=== PATIENT | male | born 1980 | race Caucasian/White ===

== ENCOUNTER 2019-03-18 07:39 | Emergency (ER) | payer BC ==
--- NOTE | 2019-03-18 07:49 | EDM.PDOC ---
ED HPI GENERAL MEDICAL PROBLEM - General Chief Complaint: Respiratory Problem Stated Complaint: COUGHING UP BROWN PHLEGM Time Seen by Provider: 03/18/19 07:41 - History of Present Illness INITIAL COMMENTS - FREE TEXT/NARRATIVE: HISTORY AND PHYSICAL: History of present illness: Patient is a 39-year-old white male sensory concern of cough productive of brown phlegm worse over the last several days patient has used an inhaler in the past and does currently have one. There's been no fever chills nausea vomiting or other complaints. Review of systems: As per history of present illness and below otherwise all systems reviewed and negative. Past medical history: As per history of present illness and as reviewed below otherwise noncontributory. Surgical history: As per history of present illness and as reviewed below otherwise noncontributory. Social history: No reported history of drug or alcohol abuse. Family history: As per history of present illness and as reviewed below otherwise noncontributory. Physical exam: HEENT: Atraumatic, normocephalic, pupils reactive, negative for conjunctival pallor or scleral icterus, mucous membranes moist, throat clear, neck supple, nontender, trachea midline. Lungs: Clear to auscultation, breath sounds equal bilaterally, chest nontender. Heart: S1S2, regular, negative for clicks, rubs, or JVD. Abdomen: Soft, nondistended, nontender. Negative for masses or hepatosplenomegaly. Negative for costovertebral tenderness. Pelvis: Stable nontender. Genitourinary: Deferred. Rectal: Deferred. Extremities: Atraumatic, negative for cords or calf pain. Neurovascular unremarkable. Neuro: Awake, alert, oriented. Cranial nerves II through XII unremarkable. Cerebellum unremarkable. Motor and sensory unremarkable throughout. Exam nonfocal. Diagnostics: Chest x-ray influenza screen Therapeutics: None Impression: #1 tracheobronchitis Definitive disposition and diagnosis as appropriate pending reevaluation and review of above. - Related Data Allergies Allergy/AdvReac Type Severity Reaction Status Date / Time nicotine Allergy Hives Verified 03/18/19 07:48 ED ROS GENERAL - Review of Systems Review Of Systems: ROS reveals no pertinent complaints other than HPI. ED EXAM, GENERAL - Physical Exam Exam: See Below (See dictation) Course - Orders/Labs/Meds Orders: Active Orders 24 hr Category Date Time Status Chest 1V Frontal [CR] Stat Exams 03/18/19 07:42 Ordered Departure - Departure Time of Disposition: 07:48 Disposition: Home, Self-Care 01 Condition: Good Clinical Impression: Tracheobronchitis - Discharge Information Additional Instructions: The following information is given to patients seen in the emergency department who are being discharged to home. This information is to outline your options for follow-up care. We provide all patients seen in our emergency department with a follow-up referral. The need for follow-up, as well as the timing and circumstances, are variable depending upon the specifics of your emergency department visit. If you don't have a primary care physician on staff, we will provide you with a referral. We always advise you to contact your personal physician following an emergency department visit to inform them of the circumstance of the visit and for follow-up with them and/or the need for any referrals to a consulting specialist. The emergency department will also refer you to a specialist when appropriate. This referral assures that you have the opportunity for followup care with a specialist. All of these measure are taken in an effort to provide you with optimal care, which includes your followup. Under all circumstances we always encourage you to contact your private physician who remains a resource for coordinating your care. When calling for followup care, please make the office aware that this follow-up is from your recent emergency room visit. If for any reason you are refused follow-up, please contact the [facility] emergency department at and asked to speak to the emergency department charge nurse. Augmentin as prescribed continue albuterol inhaler as directed follow-up primary medical doctor as needed as discussed and return as needed as discussed - My Orders Last 24 Hours: My Active Orders 03/18/19 07:42 Chest 1V Frontal [CR] Stat - Assessment/Plan Last 24 Hours: My Active Orders 03/18/19 07:42 Chest 1V Frontal [CR] Stat
--- NOTE | 2019-03-18 08:39 | CR ---
INDICATION: Pain, shortness of breath, cough. FINDINGS: Heart mediastinum and pulmonary vessels are within normal limits. There is no sign of pneumothorax. The lungs are clear for technique. Impression : No acute findings. Dictated by Kg Don MD @ Mar 18 2019 8:37AM Signed by Dr. Kg Don @ Mar 18 2019 8:38AM
== END 2019-03-18 09:00 | disposition home or self-care (01) ==
LOC: MW.ED 07:39
DX: J40 Bronchitis, not specified as acute or chronic (principal); Z88.8 Allergy status to other drugs, medicaments and biological substances
CPT/HCPCS: 71045; 71045-26; 87804; 99283-25

== ENCOUNTER 2020-01-09 09:55 | Day surgery (SDC) | payer BC ==
[~2020-01-09 09:55] MED LIST: Lactated Ringers 1,000 ML IV SCH; Sodium Chloride 0.9% 10 ML SDV IV PRN; Sodium Chloride 0.9% 10 ML Syringe FLUSH PRN; Sodium Chloride 0.9% 2.5 ML Syringe FLUSH PRN
[2020-01-09] MEDS ORDERED: Bupivacaine 0.5% 30 ML SDV ONE (10:12)
[2020-01-09] MEDS ORDERED: Lidocaine 1% 20 ML MDV ONE (10:12)
[2020-01-09] MEDS ORDERED: ceFAZolin 2 GM in Premix Bag 1 BAG IV ONE (11:56)
[2020-01-09] MEDS ORDERED: ceFAZolin/Dextrose,Iso-Osmotic 2 GM/50 ML Duplex Bag IV ONE (12:00)
--- NOTE | 2020-01-09 12:01 | PCM.OPNOTE ---
- General Post-Op/Procedure Note Date of Surgery/Procedure: 01/09/20 Operative Procedure(s): Excision posterior scalp lesion Findings: 1 x 0.5 cm round scalp lesion Pre Op Diagnosis: Scalp lesion Post-Op Diagnosis: same Anesthesia Technique: Local Primary Surgeon: Balbina VARELA in mLs: 2 Condition: Good
--- NOTE | 2020-01-09 15:46 | OR ---
SURGEON: BALBINA ESTRELLA MD DATE OF PROCEDURE: 01/09/2020 PREOPERATIVE DIAGNOSIS: Posterior scalp lesion. POSTOPERATIVE DIAGNOSIS: Posterior scalp lesion. PROCEDURE PERFORMED: Excision of posterior scalp lesion. PRIMARY SURGEON: Balbina Estrella MD ANESTHESIA: Local. ESTIMATED BLOOD LOSS: 2 mL. FINDINGS: 1 x 0.5 cm round appearing scalp lesion in the subcutaneous tissues. There were no margins associated with this case. COMPLICATIONS: None. INDICATIONS: The patient is a 40-year-old male who has a posterior scalp lesion. He states that sometimes it becomes red and swollen as well as painful. It is currently asymptomatic, but he would like to have it removed. The patient and I discussed the need to perform this in the operating room due to the need for electrocautery. The patient and I discussed the procedure, expected perioperative course, and risks including bleeding or infection. He verbalized understanding and wishes to proceed. PROCEDURE IN DETAIL: The patient was brought into the OR and placed on the OR cart in a beach chair position. A time-out was completed verifying the patient's name, age, date of , allergies, and procedure to be performed. The posterior scalp lesion had been marked preoperatively. The area around it was prepped and draped in sterile fashion. I anesthetized the area overlying the scalp lesion with 1% lidocaine plain. A total of 3 mL was used. Once adequate anesthesia was achieved, a 15 blade was used to make a 3 cm incision overlying this mass. Electrocautery was used to dissect down into the subcutaneous fat layer. Upon entering this area, I identified a cystic appearing structure. This was grasped with a hemostat, and using a combination of sharp dissection with a tenotomy and electrocautery, I dissected it free from the overlying scalp as well as the surrounding subcutaneous tissues. It was placed on the back table and measured. It was oblong in size and measured 1 cm x 0.5 cm in size. No margins were associated with this case. The mass was then sent to pathology, labeled as scalp lesion. I inspected my operative field. Hemostasis was achieved with electrocautery. I then closed the subcutaneous layer with interrupted 3-0 Vicryl sutures. The skin was then closed with interrupted 3-0 Ethilon sutures. A sterile dressing was applied. The patient tolerated the procedure well and was transferred to the PACU in stable condition. JESÚS / EMILIA /[id number]
== END 2020-01-09 12:35 | disposition home or self-care (01) ==
LOC: MW.SDS 09:55
PROVIDERS: ATTEND Surgery
DX: R22.0 Localized swelling, mass and lump, head (principal)
CPT/HCPCS: 11421; 12032; J0690; J2001; J7120; J3490

== ENCOUNTER 2021-05-10 12:52 | Emergency (ER) | payer BC ==
--- NOTE | 2021-05-10 14:11 | CR ---
Indication: Elbow pain Technique: Four views right elbow Comparison: No comparison Findings: Soft tissue swelling. Normal alignment. Olecranon spur no acute fractures seen. Dictated by Chayo Shah MD @ 05/10/2021 2:10:38 PM (Electronically Signed)
--- NOTE | 2021-05-10 14:23 | EDM.PDOC ---
ED HPI GENERAL MEDICAL PROBLEM - General Chief Complaint: Upper Extremity Injury/Pain Stated Complaint: RT ELBOW PAIN Time Seen by Provider: 05/10/21 13:15 - History of Present Illness INITIAL COMMENTS - FREE TEXT/NARRATIVE: CHIEF COMPLAINT(S): Right elbow pain HISTORY OF PRESENT ILLNESS: This is a 41-year-old man without any significant past medical history who comes to the emergency department with a chief complaint of right elbow pain. The patient states that approximately 3 days ago he was working at work when he accidentally plus gripping his right elbow. He states that he initially was not feeling bad but there was a bruise that developed on the medial side of his right elbow that seems to be getting larger and is never had a bruise this large so he wanted to come and have it evaluated. He states that he is able to move his elbow without any significant pain and initially it was hurting but now he is experiencing no pain. States he is mainly concerned about the bruise. He denies any numbness, tingling, or weakness of his hand. He denies any other injury. He has not yet tried any medications. Currently rates his pain a 0 out of 10. REVIEW OF SYSTEMS: Constitutional: Denies fever, chills. Eyes: Denies eye pain Ears, Nose, Mouth, & Throat: Denies earache Cardiovascular: Denies chest pain Respiratory: Denies shortness of breath Gastrointestinal: Denies Nausea, vomiting, diarrhea, hematochezia. Genitourinary: Denies hematuria Skin:Denies a rash MSK: Positive for right elbow bruising Neurological: Denies blurred vision, numbness, tingling, weakness Psychiatric: Denies depression PAST MEDICAL HISTORY: As per history of present illness and as reviewed below otherwise noncontributory. SURGICAL HISTORY: As per history of present illness and as reviewed below otherwise noncontributory. SOCIAL HISTORY: As per history of present illness and as reviewed below otherwise noncontributory. FAMILY HISTORY: As per history of present illness and as reviewed below otherwise noncontributory. EXAMINATION OF ORGAN SYSTEMS/BODY AREAS: Constitutional: Blood pressure was 128/87, heart rate 73, respiratory rate 16 with an oxygen saturation 96% on room air. Temperature 36.7 General: Well-appearing man who is in no acute distress Psychiatric: Appropriate mood and affect. Eyes: No scleral icterus or conjunctival erythema Cardiovascular: Regular, rate, and rhythm. No gallops, murmurs, or rubs. Bilateral upper extremity pulses symmetric and intact. No peripheral edema. No JVD. Respiratory: Lungs clear to auscultation bilaterally. No wheezes, rales, or rhonchi. Musculoskeletal: The patient can fully flex and extend at the right elbow. There is no significant deformity. There is some mild tenderness to palpation along the posterior aspect of the right elbow. Along the medial aspect of the right arm there is a significant area of bruising measuring approximately 6 x 6 cm. This area is nontender, not warm and compartments are soft. Otherwise no obvious abnormality Skin: Bruising to the medial aspect of the right elbow Neurological: Alert, GCS 15 strength and sensation grossly intact in upper and lower extremities bilaterally MEDICAL DECISION MAKING AND COURSE IN THE ED WITH INTERPRETATION/REVIEW OF DIAGNOSTIC STUDIES: This is a 41-year-old man without any significant past medical history who comes to the emergency department with bruise to the medial right elbow with some mild tenderness on the posterior aspect of the right elbow. At this time compartments are soft and the patient is neurovascularly intact. The bruise itself is not concerning to me however we will obtain a right elbow x-ray to evaluate for any fracture. I did discuss symptomatic treatment with warm compresses, Tylenol and Motrin for his bruise. I did discuss elevation. He was amenable to this plan. DDx: Fracture, soft tissue injury The radiological images were viewed by myself along with reading the report from the radiologist. Right elbow x-ray does not reveal any fracture or dislocation. Discussed the results with the patient. At this time I discussed symptomatic treatment at home. He is to return for any new or worsening symptoms. He was amenable to discharge and had no further questions DISPOSITION: The patient was discharged home in stable condition. The patient will follow up with pcp within 3-5 days CONDITION: fair PROCEDURES: None FINAL IMPRESSION(S)/DIAGNOSES: 1. Acute right elbow soft tissue injury 2. Acute right arm ecchymosis Jerrod Soto M.D. - Related Data Allergies Allergy/AdvReac Type Severity Reaction Status Date / Time nicotine Allergy Airway Verified 05/10/21 13:13 Tightness Home Meds: Home Meds . [No Known Home Meds] 03/18/19 [History] Past Medical History HEENT History: Reports: Other (See Below) Other HEENT History: hx of fx nose Respiratory History: Reports: Asthma, Bronchitis, Recurrent Other Respiratory History: hx of asthma as a child- has outgrown Gastrointestinal History: Reports: Other (See Below) Other Gastrointestinal History: hx of an "ulcer" as a child Musculoskeletal History: Reports: Back Pain, Chronic, Fracture, Osteoarthritis Other Musculoskeletal History: hx of fx clavicle and nose Neurological History: Reports: Other (See Below) Other Neuro History: severe headaches from scalp mass, has degenerative disc disease in lower back Endocrine/Metabolic History: Reports: Obesity/BMI 30+ Dermatologic History: Reports: Other (See Below) Other Dermatologic History: states skin is very sensitive - Infectious Disease History Infectious Disease History: Reports: None - Past Surgical History Head Surgeries/Procedures: Reports: None HEENT Surgical History: Reports: Adenoidectomy, Naso-Sinus Surgery, Tonsillectomy Other HEENT Surgeries/Procedures: Nasal Septoplasty and Rhinoplasty Social & Family History - Family History Family Medical History: No Pertinent Family History - Tobacco Use Tobacco Use Status *Q: Never Tobacco User - Caffeine Use Caffeine Use: Reports: Coffee - Recreational Drug Use Recreational Drug Use: No Review of Systems - Review of Systems Review Of Systems: See Below ED EXAM, GENERAL - Physical Exam Exam: See Below Course - Vital Signs Last Recorded V/S: Last Vital Signs Temp 36.7 C 05/10/21 14:38 Pulse 76 05/10/21 14:38 Resp 16 05/10/21 14:38 BP 129/87 05/10/21 14:38 Pulse Ox 95 05/10/21 14:38 Departure - Departure Time of Disposition: 14:22 Disposition: Home, Self-Care 01 Condition: Fair Clinical Impression: Bruise, Elbow pain - Discharge Information *PRESCRIPTION DRUG MONITORING PROGRAM REVIEWED*: No *COPY OF PRESCRIPTION DRUG MONITORING REPORT IN PATIENT ISAIAH: No Instructions: Contusion Referrals: PCP,None [Primary Care Provider] - Forms: ED Department Discharge Additional Instructions: Your evaluated today on an emergent basis. At this time your imaging did not reveal any broken bones. I recommend that you use Tylenol and Motrin for pain relief and keep your extremity elevated. As discussed I would like you to use warm compresses on the area that is bruised 2-3 times a day for approximately 15 minutes. If you have any worsening pain or you are concerned you are welcome to return to the emergency department. Otherwise follow-up with primary care physician in 3 to 5 days [facility] [address] [place] [address] [facility] [address] [place] [address] The patient is informed of any results of their evaluation and diagnostic workup and all questions are answered. They are given discharge instructions and return precautions. The patient is stable for discharge. The patient states they understand and agree with the plan and that they will return if their symptoms get worse or if they have any new concerns. The following information is given to patients seen in the emergency department who are being discharged to home. This information is to outline your options for follow-up care. We provide all patients seen in our emergency department with a follow-up referral. The need for follow-up, as well as the timing and circumstances, are variable depending upon the specifics of your emergency department visit. If you don't have a primary care physician on staff, we will provide you with a referral. We always advise you to contact your personal physician following an emergency department visit to inform them of the circumstance of the visit and for follow-up with them and/or the need for any referrals to a consulting specialist. The emergency department will also refer you to a specialist when appropriate. This referral assures that you have the opportunity for follow-up care with a specialist. All of these measure are taken in an effort to provide you with optimal care, which includes your follow-up. Under all circumstances we always encourage you to contact your private physician who remains a resource for coordinating your care. When calling for follow-up care, please make the office aware that this follow-up is from your recent emergency room visit. If for any reason you are refused follow-up, please contact the [facility] Emergency Department at and asked to speak to the emergency department charge nurse.
== END 2021-05-10 14:40 | disposition home or self-care (01) ==
LOC: MW.ED 12:52
DX: S50.01XA Contusion of right elbow, initial encounter (principal); J45.909 Unspecified asthma, uncomplicated; E66.9 Obesity, unspecified; Z68.34 Body mass index [BMI] 34.0-34.9, adult; Z91.048 Other nonmedicinal substance allergy status; W22.8XXA Striking against or struck by other objects, initial encounter; Y92.89 Other specified places as the place of occurrence of the external cause; Y99.0 Civilian activity done for income or pay
CPT/HCPCS: 73080-26-RT; 73080-RT; 99283-25